=== PATIENT | female | born 1965 | race Caucasian/White ===

== ENCOUNTER 2018-03-27 09:47 | Day surgery (SDC) | payer BC ==
[~2018-03-27] VITALS: Ht 167.6 cm; Wt 72.6 kg
[~2018-03-27 09:47] MED LIST: MULTIPLE VITAM1 EAC1 PO; SYNTHROID50 MCG PO; VITAMIN D2000 UNIT PO
[2018-03-27 10:42] VITALS: BP 128/67
[2018-03-27 14:26] VITALS: BP 139/75
[2018-03-27 15:16] VITALS: BP 116/68
[2018-03-27 17:11] VITALS: BP 117/65
== END 2018-03-27 17:15 | disposition home or self-care (01) ==
LOC: SDC 09:47
PROC: 0UDB8ZX Extraction of Endometrium, Via Natural or Artificial Opening Endoscopic, Diagnostic (ICD-10-PCS; principal; 2018-03-27)
PROC: 0UB98ZX Excision of Uterus, Via Natural or Artificial Opening Endoscopic, Diagnostic (ICD-10-PCS; principal; 2018-03-27)
DX: N84.0 Polyp of corpus uteri (principal); N95.0 Postmenopausal bleeding; E03.9 Hypothyroidism, unspecified; G89.29 Other chronic pain
CPT/HCPCS: 88305; J0690; J1100; J1170; J1885; J2405